=== PATIENT | male | born 1985 | race Caucasian/White ===

== ENCOUNTER 2017-05-12 09:58 | Emergency (ER) | payer SELFPAY ==
[~2017-05-12] VITALS: Ht 182.9 cm; Wt 81.0 kg
[2017-05-12 10:00] VITALS: BP 122/85
== END 2017-05-12 17:50 | disposition left against medical advice (07) ==
LOC: ER 10:02
DX: Z53.21 Procedure and treatment not carried out due to patient leaving prior to being seen by health care provider (principal); F17.210 Nicotine dependence, cigarettes, uncomplicated

== ENCOUNTER 2017-05-29 17:04 | Emergency (ER) | payer OTHER ==
[~2017-05-29] VITALS: Ht 177.8 cm; Wt 69.0 kg
[2017-05-29] MEDS ORDERED: AZITHROMYCIN 500 MG TABLET PO ONE (18:00)
[2017-05-29] MEDS ORDERED: CEFTRIAXONE SODIUM 250 MG/VIAL IM ONE (18:00)
[2017-05-29] MEDS ORDERED: IBUPROFEN 600MG TABLET PO ONE (18:15)
[2017-05-29] MEDS ORDERED: LIDOCAINE HCL 1% 20ML VIAL (Pyxis) INJ MC ONE (18:15)
[2017-05-29 18:20] VITALS: BP 130/80
== END 2017-05-29 18:21 | disposition home or self-care (01) ==
LOC: ER 17:18
DX: A64 Unspecified sexually transmitted disease (principal); F17.200 Nicotine dependence, unspecified, uncomplicated; F12.10 Cannabis abuse, uncomplicated; Z88.8 Allergy status to other drugs, medicaments and biological substances
CPT/HCPCS: 96372; 99283; J0696; J3490